=== PATIENT | female | born 1990 | race Caucasian/White ===

== ENCOUNTER 2022-07-08 10:07 | Day surgery (SDC) | payer OTHER ==
[~2022-07-08] VITALS: Ht 168.9 cm; Wt 97.5 kg
[2022-07-08] MEDS ORDERED: MIDAZOLAM 2 MG/2 ML VIAL ONE ×2 (11:19)
[2022-07-08] MEDS ORDERED: LIDOCAINE 2% 100 MG/5 ML UJET TP ONE (11:19)
[2022-07-08] MEDS ORDERED: diphenhydrAMINE 50 MG/ML VIAL ONE (11:19)
[2022-07-08] MEDS ORDERED: fentaNYL citrate 0.05 MG/ML VIAL ONE ×2 (11:19→11:34)
[2022-07-08] MEDS ORDERED: diphenhydrAMINE 50 MG/ML VIAL IVP ONE (12:55)
[2022-07-08] MEDS ORDERED: MIDAZOLAM 2 MG/2 ML VIAL IVP ONE (12:55)
[2022-07-08] MEDS ORDERED: fentaNYL citrate 0.05 MG/ML VIAL IVP ONE (12:55)
== END 2022-07-08 15:00 | disposition home or self-care (01) ==
LOC: MDS 10:07 → MMU 10:08 → MDS 15:00
PROVIDERS: ATTEND Internal Medicine Gastroenterology
DX: R19.7 Diarrhea, unspecified (principal); K64.9 Unspecified hemorrhoids; G43.909 Migraine, unspecified, not intractable, without status migrainosus; F41.9 Anxiety disorder, unspecified; K21.9 Gastro-esophageal reflux disease without esophagitis; E66.9 Obesity, unspecified; Z88.0 Allergy status to penicillin; Z88.1 Allergy status to other antibiotic agents; Z79.899 Other long term (current) drug therapy; Z20.822 Contact with and (suspected) exposure to COVID-19
CPT/HCPCS: 45380; 87426; J1200; J2250; J3010